=== PATIENT | female | born 1970 | race Caucasian/White ===

== ENCOUNTER → 2023-06-10 | Day surgery (SDC) | payer OTHER ==
[~2023-06-10] MED LIST: Lactated Ringers 1,000 ML IV SCH; Lidocaine 2% 5 ML SDV ONE; Propofol 200 MG/20 ML SDV ONE
== END | disposition home or self-care (01) ==
LOC: JP.SDS 07:51
PROVIDERS: ATTEND Student in an Organized Health Care Education/Training Program
DX: D12.5 Benign neoplasm of sigmoid colon (principal); K64.8 Other hemorrhoids; Q43.8 Other specified congenital malformations of intestine
CPT/HCPCS: 45380; 88305; J2704; J7120